=== PATIENT | female | born 1995 | race Two or more races ===

== ENCOUNTER 2021-09-17 14:17 | Emergency (ER) | payer OTHER ==
[~2021-09-17] VITALS: Ht 162.6 cm; Wt 47.6 kg
== END 2021-09-17 14:42 | disposition home or self-care (01) ==
LOC: ER 14:17
DX: R53.81 Other malaise (principal); B96.0 Mycoplasma pneumoniae [M. pneumoniae] as the cause of diseases classified elsewhere